=== PATIENT | male | born 1960 | race Caucasian/White ===

== ENCOUNTER → 2017-06-02 | Outpatient (CLI) | payer BC ==
[~2017-06-02] MED LIST: TOBRADEX 0.1%-0.5 ML OPH
== END | disposition home or self-care (01) ==
LOC: RAD 08:07
DX: K63.9 Disease of intestine, unspecified (principal)

== ENCOUNTER → 2021-01-28 | Outpatient (CLI) | payer BC | END | disposition home or self-care (01) | LOC: ORTHO 00:49 | PROVIDERS: ATTEND Orthopaedic Surgery | DX: M25.561 Pain in right knee (principal) ==

== ENCOUNTER → 2021-05-02 | Outpatient (CLI) | payer OTHER | END | disposition home or self-care (01) | LOC: MRI 11:17 | PROVIDERS: ATTEND Orthopaedic Surgery | DX: S83.411A Sprain of medial collateral ligament of right knee, initial encounter (principal); S83.241A Other tear of medial meniscus, current injury, right knee, initial encounter; X58.XXXA Exposure to other specified factors, initial encounter; Y93.89 Activity, other specified; Y92.89 Other specified places as the place of occurrence of the external cause; Y99.8 Other external cause status; M25.461 Effusion, right knee ==